=== PATIENT | male | born 1950 | race Caucasian/White ===

== ENCOUNTER 2021-04-19 21:38 | Emergency (ER) | payer MEDICARE, OTHER ==
[~2021-04-19 21:38] MED LIST: AMIODARONE HCL200 M1 PO; ASPIR 8181 MG PO; B COMPLEX1 EACH PO; ELIQUIS5 MG PO; LEVAQUIN500 MG PO; LIPITOR40 MG PO; METFORMIN HCL500 MG PO; METOPROLOL SUCC25 MG PO; STOOL SOFTENER1 EACH PO
== END 2021-04-19 22:15 | disposition home or self-care (01) ==
LOC: FER 21:38
DX: S60.410A Abrasion of right index finger, initial encounter (principal); I10 Essential (primary) hypertension; E11.9 Type 2 diabetes mellitus without complications; I25.10 Atherosclerotic heart disease of native coronary artery without angina pectoris; Z79.01 Long term (current) use of anticoagulants; Z79.84 Long term (current) use of oral hypoglycemic drugs; W22.8XXA Striking against or struck by other objects, initial encounter; Y92.009 Unspecified place in unspecified non-institutional (private) residence as the place of occurrence of the external cause
CPT/HCPCS: 90471; 90715; 99283

== ENCOUNTER → 2022-01-18 | Day surgery (SDC) | payer MEDICARE, OTHER ==
[~2022-01-18] VITALS: Ht 175.3 cm; Wt 69.4 kg
[~2022-01-18] MED LIST changes: +IRON325 M1 PO; +LEVOTHYROXINE88 MCG PO; +LOPRESSOR25 MG PO
== END | disposition home or self-care (01) ==
LOC: FAS 09:09
DX: K22.2 Esophageal obstruction (principal); K29.50 Unspecified chronic gastritis without bleeding; K21.00 Gastro-esophageal reflux disease with esophagitis, without bleeding; D50.0 Iron deficiency anemia secondary to blood loss (chronic); I10 Essential (primary) hypertension; E11.9 Type 2 diabetes mellitus without complications; I48.91 Unspecified atrial fibrillation; E78.5 Hyperlipidemia, unspecified; J44.9 Chronic obstructive pulmonary disease, unspecified; F17.200 Nicotine dependence, unspecified, uncomplicated; Z95.1 Presence of aortocoronary bypass graft; Z79.01 Long term (current) use of anticoagulants; Z79.84 Long term (current) use of oral hypoglycemic drugs; Z79.899 Other long term (current) drug therapy
CPT/HCPCS: C1726; J2250; J2704; J7120